=== PATIENT | male | born 1945 | race Asian ===

== ENCOUNTER 2020-04-24 21:24 | Inpatient (IN) | payer MEDICARE, OTHER ==
[~2020-04-24] VITALS: Ht 165.1 cm; Wt 68.0 kg
--- NOTE | 2020-04-24 21:29 | NUR ---
PT AMBULATED TO THE RESTROOM WITH A STEADY GAIT, WILL PROVIDE URINE SAMPLE.
--- NOTE | 2020-04-24 21:36 | NUR ---
PT AAOX4. AMBULATORY WITH STEADY GAIT. SPEAKS MINIMAL MALAYSIAN. BIBRA. PER RA " STATED HE WAS HALLUCINATING AND SEEING THINGS IN THE BEDROOM." PALCED IN BED 12, ON MONITOR AND PULSE OX. AWAITING MD FOR EVAL. PT PROVIDED URINE SAMPLE.
[2020-04-24 21:50] LABS: BASOPHILS % (AUTO) 0.2 % (0.0-2.0); EOSINOPHILS % (AUTO) 1.1 % (0.0-6.0); HEMATOCRIT 46 % (39-51); HEMOGLOBIN 15.5 g/dL (13.5-17.5); LYMPHOCYTES # (AUTO) 1.7 /CMM (0.8-4.8); MEAN CORPUSCULAR HGB CONC 34 g/dl (31.0-36.0); MEAN CORPUSCULAR VOLUME 100 fL (80-96); MONOCYTES # (AUTO) 0.6 /CMM (0.1-1.30); NEUTROPHILS # (AUTO) 5.6 /CMM (1.8-8.9); NEUTROPHILS % (AUTO) 70.7 % (43.0-81.0); PLATELET COUNT (AUTO) 162 /CMM (150-450); RED BLOOD CELL COUNT(AUTO) 4.59 MIL/uL (4.5-6.0)
[2020-04-24 21:56] LABS: APPEARANCE,URINE Clear (CLEAR); BILIRUBIN,URINE Negative (NEGATIVE); BLOOD, URINE Negative Ery/uL (NEGATIVE); COLOR,URINE Yellow (YELLOW); KETONES,URINE Trace (NEGATIVE); LEUKOCYTE ESTERASE ,URINE Negative (NEGATIVE); NITRITE, URINE Negative (NEGATIVE); PH,URINE 5.5 (5.0-8.0); PROTEIN,URINE Negative (NEGATIVE); UGLUCOSE Negative (NEGATIVE); UROBILINOGEN,URINE 0.2 EU/dL (0.2)
[2020-04-24 21:57] LABS: CALCIUM, SERUM 10.2 mg/dL (8.5-10.1); CARBON DIOXIDE 27 mmol/L (21-32); CHLORIDE 104 mmol/L (98-107); CREATININE 1.9 mg/dL (0.6-1.3); GLUCOSE 151 mg/dL (74-106); POTASSIUM 3.8 mmol/L (3.5-5.1); SODIUM SERUM 141 mmol/L (136-145); UREA NITROGEN, BLOOD 26 mg/dL (7-18)
--- NOTE | 2020-04-24 22:07 | NUR ---
spoke to on the phone.
[2020-04-24 22:09] LABS: ALANINE AMINOTRANSFERASE 38 U/L (12-78); ALBUMIN 4.7 g/dL (3.4-5.0); ALCOHOL, BLOOD < 3 mg/dL (0-0); ALKALINE PHOSPHATASE 67 U/L (46-116); ASPARTATE AMINOTRANSFERASE 29 U/L (15-37); BILIRUBIN,DIRECT 0.1 mg/dL (0.0-0.2); BILIRUBIN,TOTAL 0.6 mg/dL (0.2-1.0); TOTAL PROTEIN, SERUM 8.6 g/dL (6.4-8.2)
--- NOTE | 2020-04-24 22:09 | NUR ---
yaw (shaylabasil) [phone] - cell
[2020-04-24 22:10] LABS: ACETAMINOPHEN 0 ug/ml (10-30); SALICYLATE 0.7 mg/dL (2.8-20.0)
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
[2020-04-24 22:13] LABS: BACTERIA,URINE Few /HPF (None Seen); HYALINE CASTS, URINE Few /LPF (None Seen); MUCUS,URINE Few /LPF (None Seen); RBC,URINE 0-2 /HPF (0-2); SQUAMOUS EPITHELIAL CELL,UR Few /HPF (None Seen); WBC,URINE 0-2 /HPF (0-3)
[2020-04-24] MEDS ORDERED: IV NS 0.9% 1,000 ML BAG IV ONE (22:30)
--- NOTE | 2020-04-24 23:30 | NUR ---
ATTEMPTED TO CONTACT SCOOBY TABARES FOR EVALUATION. LEFT MESSAGE, WILL FOLLOW UP
--- NOTE | 2020-04-25 00:15 | NUR ---
ATTEMPTED TO CONTACT SCOOBY TABARES FOR EVALUATION. LEFT MESSAGE, WILL FOLLOW UP
--- NOTE | 2020-04-25 01:19 | NUR ---
ATTEMPTED TO CONTACT SCOOBY TABARES FOR EVALUATION. LEFT MESSAGE, WILL FOLLOW UP
--- NOTE | 2020-04-25 01:25 | NUR ---
ATTEMPTED TO CONTACT SCOOBY MCCALL. LEFT MESSAGE, WILL FOLLOW UP
--- NOTE | 2020-04-25 01:36 | NUR ---
PER SCOOBY MCCALL CALL JHONATHAN AQUINO FOR EVALUATION. ATTEMPTED TO CONTACT JHONATHAN AQUINO NO ANSWER, LEFT MESSAGE. WILL FOLLOW UP
--- NOTE | 2020-04-25 01:44 | NUR ---
SPOKE WITH JHONATHAN AQUINO. WILL COME FOR EVALUATION
--- NOTE | 2020-04-25 03:44 | NUR ---
ATTEMPTED TO CONTACT JHONATHAN AQUINO FOR EVALUATION. NO ANSWER, WILL FOLLOW UP
--- NOTE | 2020-04-25 03:59 | NUR ---
SPOKE WITH SCOOBY TABARES. EN ROUTE TO HOSPITAL FOR EVALUATION
--- NOTE | 2020-04-25 04:55 | NUR ---
RAYSA FROM CRISIS AT BEDSIDE
--- NOTE | 2020-04-25 06:05 | NUR ---
REPORT GIVEN TO JHONATHAN EDEN
--- NOTE | 2020-04-25 06:41 | NUR ---
PT TRANSFFERED TO GPS VIA WHEELCHAIR
[2020-04-25 08:00] VITALS: BP 131/83
--- NOTE | 2020-04-25 08:00 | NUR ---
Spoke to the Twyla and gave the commercial loan underwriter the meds that pt. is taking at home.
--- NOTE | 2020-04-25 08:00 | NUR ---
GPS/RN RECEIVED THE PT FROM DRIER AND GRINDER TENDER. PT BROUGHT TO THE UNIT FROM [facility] ER ORIGINALLY FROM HOME ON 5150 FOR GD AND DTS. TAGALOG AND BASIC [place] SPEAKING. AMBULATORY VSS. ON FACE TO FACE ASSESSMENT NO SI OR HI REPORTED. ADMITTING ORDERS FROM DR BURGOS RECEIVED AND CARRIED OUT. DR ROSS TO RECONCILE MEDS.
[2020-04-25] MEDS ORDERED: TAMS-12 PO (08:04)
[2020-04-25] MEDS ORDERED: LATA2.5D7 EACHEYE (08:04)
[2020-04-25] MEDS ORDERED: LEVO100T9 PO (08:04)
[2020-04-25] MEDS ORDERED: QUET25TA PO (08:04)
[2020-04-25] MEDS ORDERED: AMLO10TA7 PO (08:04)
[2020-04-25] MEDS ORDERED: OMEG1CAP (08:04)
[2020-04-25] MEDS ORDERED: CALC-1274 (08:04)
[2020-04-25] MEDS ORDERED: METO50TA16 PO (08:04)
[2020-04-25] MEDS ORDERED: ATORVASTATIN PO (08:04)
[2020-04-25] MEDS ORDERED: ASPI-1152 PO (08:04)
[2020-04-25] MEDS ORDERED: MAGNESIUM HYDROXIDE 30 ML UDC PO PRN (08:30)
[2020-04-25] MEDS ORDERED: MAG HYDROX/AL HYDROX/SIMETH 30 ML UDC PO PRN (08:30)
[2020-04-25] MEDS ORDERED: ACETAMINOPHEN 325 MG TABLET PO PRN (08:30)
[2020-04-25] MEDS ORDERED: BLOOD SUGAR DIAGNOSTIC 1 EACH STRIP IN ONE (08:30)
--- NOTE | 2020-04-25 08:50 | NUR ---
Dr. Zavala gave an order to D/C hold and D/C home and to follow up with the psych and medical doctors. Addendum: 04/25/20 at 0852 by LESTER YOUNG RN Documentation is not for this patient.
[2020-04-25] MEDS: ASPIRIN EC 81 MG TABLET.DR PO SCH (08:57)
[2020-04-25] MEDS: TAMSULOSIN 0.4 MG CAP.SR.24H PO SCH (08:57)
[2020-04-25] MEDS: LEVOTHYROXINE SODIUM 100 MCG TABLET PO SCH (08:57)
[2020-04-25] MEDS: AMLODIPINE BESYLATE 10 MG TABLET PO SCH (08:58)
[2020-04-25] MEDS: METOPROLOL TARTRATE 50 MG TABLET PO SCH ×2 (08:58→16:27)
[2020-04-25 16:00] VITALS: BP 115/70
[2020-04-25] MEDS ORDERED: LORAZEPAM 1 MG TABLET PO PRN (17:30)
--- NOTE | 2020-04-25 19:10 | NUR ---
GPS/RN ENDORSED TO MEEK RN TO MEDICATE THE PT.
[2020-04-25] MEDS: risperiDONE 1 MG TABLET PO SCH (19:17)
[2020-04-25] MEDS: RIVASTIGMINE TARTRATE 1.5 MG CAPSULE PO SCH (19:17)
[2020-04-25 19:53] VITALS: BP 123/71
[2020-04-25] MEDS: ATORVASTATIN 40 MG TABLET PO SCH (21:23)
[2020-04-25] MEDS: LATANOPROST EYE DROP 0.005% 2.5 ML BOTTLE EACHEYE SCH (21:23)
[2020-04-26] MEDS: risperiDONE 1 MG TABLET PO SCH ×2 (06:07→16:55)
[2020-04-26] MEDS: RIVASTIGMINE TARTRATE 1.5 MG CAPSULE PO SCH ×2 (06:07→16:55)
[2020-04-26 06:29] LABS: BASOPHILS % (AUTO) 0.7 % (0.0-2.0); EOSINOPHILS % (AUTO) 5.6 % (0.0-6.0); HEMATOCRIT 43 % (39-51); HEMOGLOBIN 14.6 g/dL (13.5-17.5); LYMPHOCYTES # (AUTO) 1.3 /CMM (0.8-4.8); LYMPHOCYTES % (AUTO) 25.6 % (20.0-44.0); MEAN CORPUSCULAR HGB CONC 34 g/dl (31.0-36.0); MEAN CORPUSCULAR VOLUME 99 fL (80-96); MONOCYTES # (AUTO) 0.6 /CMM (0.1-1.30); MONOCYTES % (AUTO) 12.7 % (2.0-12.0); NEUTROPHILS # (AUTO) 2.8 /CMM (1.8-8.9); NEUTROPHILS % (AUTO) 55.4 % (43.0-81.0); PLATELET COUNT (AUTO) 138 /CMM (150-450); RED BLOOD CELL COUNT(AUTO) 4.37 MIL/uL (4.5-6.0); WHITE BLOOD COUNT (AUTO) 5.1 K/uL (4.3-11.0)
[2020-04-26 06:54] LABS: ALBUMIN 3.9 g/dL (3.4-5.0); BILIRUBIN,TOTAL 1.3 mg/dL (0.2-1.0); CALCIUM, SERUM 8.8 mg/dL (8.5-10.1); CREATININE 1.2 mg/dL (0.6-1.3); MAGNESIUM 2.4 mg/dL (1.8-2.4); PHOSPHORUS 3.1 mg/dL (2.5-4.9); POTASSIUM 3.5 mmol/L (3.5-5.1); TOTAL PROTEIN, SERUM 7.4 g/dL (6.4-8.2)
[2020-04-26 08:00] VITALS: BP 108/70
[2020-04-26] MEDS: TAMSULOSIN 0.4 MG CAP.SR.24H PO SCH (08:49)
[2020-04-26] MEDS: CALCIUM CARB 250MG /VITAMIN D 1 UDTAB PO SCH (08:50)
[2020-04-26] MEDS: LEVOTHYROXINE SODIUM 100 MCG TABLET PO SCH (08:50)
[2020-04-26] MEDS: ASPIRIN EC 81 MG TABLET.DR PO SCH (08:50)
[2020-04-26] MEDS: AMLODIPINE BESYLATE 10 MG TABLET PO SCH (08:50)
[2020-04-26] MEDS: METOPROLOL TARTRATE 50 MG TABLET PO SCH ×2 (08:51→16:55)
[2020-04-26 16:00] VITALS: BP 128/76
[2020-04-26 20:07] VITALS: BP 114/69
[2020-04-26] MEDS: LATANOPROST EYE DROP 0.005% 2.5 ML BOTTLE EACHEYE SCH (21:04)
[2020-04-26] MEDS: ATORVASTATIN 40 MG TABLET PO SCH (21:04)
[2020-04-27] MEDS: risperiDONE 1 MG TABLET PO SCH ×2 (05:13→17:17)
[2020-04-27] MEDS: RIVASTIGMINE TARTRATE 1.5 MG CAPSULE PO SCH ×2 (05:14→17:17)
--- NOTE | 2020-04-27 06:25 | NUR ---
GPS RN CLOSING NOTE, PATIENT IN BED ASLEEP AT THIS TIME, NO SOB/ACUTE DISTRESS NOTED, PT REMAINED STABLE THROUGHOUT SHIFT, COOPERATIVE AND COMPLIANT WITH CARE AND MEDICATIONS, TAGALOG SPEAKING, ALL NEEDS PROVIDED, SAFETY PRECAUTIONS IN PLACE, BED LOCKED POSITION AND LOWEST POSITION, BED ALARM ON, HOB ELEVATED TO SEMI FOWLERS POSITION, CALL LIGHT WITHIN REACH, WILL ENDORSE CONTINUITY OF CARE TO ONCOMING NURSE.
[2020-04-27 08:00] VITALS: BP 103/61
[2020-04-27] MEDS: CALCIUM CARB 250MG /VITAMIN D 1 UDTAB PO SCH (08:19)
[2020-04-27] MEDS: LEVOTHYROXINE SODIUM 100 MCG TABLET PO SCH (08:19)
[2020-04-27] MEDS: TAMSULOSIN 0.4 MG CAP.SR.24H PO SCH (08:19)
[2020-04-27] MEDS: ASPIRIN EC 81 MG TABLET.DR PO SCH (08:19)
[2020-04-27] MEDS: AMLODIPINE BESYLATE 10 MG TABLET PO SCH (08:20)
[2020-04-27] MEDS: METOPROLOL TARTRATE 50 MG TABLET PO SCH ×2 (08:20→17:18)
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
--- NOTE | 2020-04-27 11:26 | NUR ---
INITIAL DISCHARGE PLAN: Per Twyla [phone] she wishes for pt to return home [address] [id number]. SW will help form a safe and proper discharge in collaboration with .
--- NOTE | 2020-04-27 15:49 | NUR ---
GROUP THERAPY: SW encouraged the pt to participate in group therapy but the pt is confused and disorganized. Pt is unable to participate in group therapy at this time. Pt did not engage with SW when SW attempted to provide individual intervention.
[2020-04-27 16:00] VITALS: BP 129/69
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
[2020-04-27 20:02] VITALS: BP 106/68
[2020-04-27] MEDS: LATANOPROST EYE DROP 0.005% 2.5 ML BOTTLE EACHEYE SCH (21:19)
[2020-04-27] MEDS: TEMAZEPAM 15 MG CAPSULE PO PRN (21:24)
--- NOTE | 2020-04-27 21:26 | NUR ---
GPS-RN NOTE: INSOMNIA PATIENT C/O INABILITY TO SLEEP. ADMINISTERED RESTORIL 15MG PO ORDERED. WILL CONTINUE TO MONITOR.
[2020-04-28 05:55] VITALS: BP 102/60
[2020-04-28] MEDS: RIVASTIGMINE TARTRATE 1.5 MG CAPSULE PO SCH ×2 (05:59→18:16)
[2020-04-28] MEDS: risperiDONE 1 MG TABLET PO SCH ×2 (05:59→18:17)
[2020-04-28 08:00] VITALS: BP_SYST 102; BP_SYST 112; BP_DIAS 64; BP_DIAS 76
[2020-04-28] MEDS: CALCIUM CARB 250MG /VITAMIN D 1 UDTAB PO SCH (08:58)
[2020-04-28] MEDS: ASPIRIN EC 81 MG TABLET.DR PO SCH (08:58)
[2020-04-28] MEDS: TAMSULOSIN 0.4 MG CAP.SR.24H PO SCH (08:58)
[2020-04-28] MEDS: LEVOTHYROXINE SODIUM 100 MCG TABLET PO SCH (08:59)
[2020-04-28] MEDS: METOPROLOL TARTRATE 50 MG TABLET PO SCH ×2 (08:59→17:00)
[2020-04-28] MEDS: AMLODIPINE BESYLATE 10 MG TABLET PO SCH (09:00)
[2020-04-28 10:19] LABS: *SPE A/G RATIO 1.2 (0.7-1.7); *SPE ALBUMIN 3.5 g/dL (2.9-4.4); *SPE ALPHA-1-GLOBULIN 0.2 g/dL (0.0-0.4); *SPE ALPHA-2-GLOBULIN 0.6 g/dL (0.4-1.0); *SPE BETA GLOBULIN 1.1 g/dL (0.7-1.3); *SPE M-SPIKE Not Observed g/dL (Not Observed); *SPEGAMMA GLOBULIN 1.1 g/dL (0.4-1.8)
[2020-04-28 13:08] LABS: PTH, INTACT 34 pg/mL (15-65)
[2020-04-28 16:00] VITALS: BP 102/64
--- NOTE | 2020-04-28 17:30 | NUR ---
quiet,isolative,med compliant,no complaints.
[2020-04-28 20:00] VITALS: BP 116/78
[2020-04-28] MEDS: LATANOPROST EYE DROP 0.005% 2.5 ML BOTTLE EACHEYE SCH (21:25)
[2020-04-28] MEDS: TEMAZEPAM 15 MG CAPSULE PO PRN (21:26)
--- NOTE | 2020-04-28 21:31 | NUR ---
GPS RN NOTES: INSOMNIA PT C/O UNABLE TO SLEEP. OFFERED RESTORIL 15MG PO PRN ORDERED. PT AGREED AND TOLERATED WELL. CONTINUE TO MONITOR.
[2020-04-29 00:36] VITALS: BP 131/68
[2020-04-29] MEDS: RIVASTIGMINE TARTRATE 1.5 MG CAPSULE PO SCH ×2 (05:28→17:23)
[2020-04-29] MEDS: risperiDONE 1 MG TABLET PO SCH ×2 (05:28→17:23)
[2020-04-29 08:00] VITALS: BP 144/68
[2020-04-29] MEDS: LEVOTHYROXINE SODIUM 100 MCG TABLET PO SCH (09:18)
[2020-04-29] MEDS: CALCIUM CARB 250MG /VITAMIN D 1 UDTAB PO SCH (09:18)
[2020-04-29] MEDS: AMLODIPINE BESYLATE 10 MG TABLET PO SCH (09:18)
[2020-04-29] MEDS: TAMSULOSIN 0.4 MG CAP.SR.24H PO SCH (09:18)
[2020-04-29] MEDS: ASPIRIN EC 81 MG TABLET.DR PO SCH (09:19)
[2020-04-29] MEDS: METOPROLOL TARTRATE 50 MG TABLET PO SCH ×2 (09:19→17:23)
--- NOTE | 2020-04-29 14:47 | NUR ---
GROUP NOTE: SW encouraged the pt to participate in group therapy but the pt is confused and disorganized. Pt was sitting at bedside eating crackers, SW called his name and pt did not respond.
--- NOTE | 2020-04-29 15:39 | NUR ---
BACK AND FORTH BETWEEN PT. ROOM AND DINING RM.
[2020-04-29 16:00] VITALS: BP 122/75
[2020-04-29 19:37] VITALS: BP 117/66
[2020-04-29 20:00] VITALS: BP 117/66
--- NOTE | 2020-04-29 21:12 | NUR ---
GPS RN NOTE: PRN TYLENOL GIVEN PATIENT VERBALIZED SLIGHT THROAT PAIN & IRRITATION, HAVE NOT SEEN PATIENT COUGHING OR ANY OTHER FLU LIKE SYMPTOMS SINCE THE BEGINNING OF SSAS DEVELOPER, NEITHER GOT REPORT FROM AM RN ABOUT ANY SYMPTOMS. PATIENT REQUESTED TO GET PAIN MEDICINE, TRANSLATED WITH ANOTHER RN UNDERSTANDING TAGALOG. PRN TYLENOL 650 MG PO GIVEN. WILL CONTINUE TO MONITOR FOR ANY CHANGES.
[2020-04-29] MEDS: LATANOPROST EYE DROP 0.005% 2.5 ML BOTTLE EACHEYE SCH (21:28)
[2020-04-29] MEDS: TEMAZEPAM 15 MG CAPSULE PO PRN (23:27)
--- NOTE | 2020-04-29 23:27 | NUR ---
PRN RESTORIL GIVEN PATIENT IS AWAKE & VERBALIZED THAT HE IS UNABLE TO SLEEP & REQUESTED TO GET HIS SLEEPING MEDICINE. PRN RESTORIL 15 MG 1 CAP PO GIVEN. WILL REASSESS FOR EFFECTIVENESS.
[2020-04-30] MEDS: risperiDONE 1 MG TABLET PO SCH ×2 (06:00→17:03)
[2020-04-30] MEDS: RIVASTIGMINE TARTRATE 1.5 MG CAPSULE PO SCH ×2 (06:00→17:04)
[2020-04-30 07:59] LABS: ALBUMIN 4.5 g/dL (3.4-5.0); CALCIUM, SERUM 9.7 mg/dL (8.5-10.1); CREATININE 1.1 mg/dL (0.6-1.3); MAGNESIUM 2.4 mg/dL (1.8-2.4); PHOSPHORUS 3.6 mg/dL (2.5-4.9); POTASSIUM 3.8 mmol/L (3.5-5.1); TOTAL PROTEIN, SERUM 8.7 g/dL (6.4-8.2)
[2020-04-30 08:00] VITALS: BP 106/70
[2020-04-30 08:17] LABS: BASOPHILS # (AUTO) 0.1 /CMM (0.0-0.2); BASOPHILS % (AUTO) 0.9 % (0.0-2.0); EOSINOPHILS % (AUTO) 4.9 % (0.0-6.0); HEMATOCRIT 50 % (39-51); HEMOGLOBIN 16.1 g/dL (13.5-17.5); LYMPHOCYTES % (AUTO) 48.5 % (20.0-44.0); MEAN CORPUSCULAR HGB CONC 33 g/dl (31.0-36.0); MEAN CORPUSCULAR VOLUME 103 fL (80-96); MONOCYTES # (AUTO) 0.5 /CMM (0.1-1.30); MONOCYTES % (AUTO) 8.2 % (2.0-12.0); NEUTROPHILS # (AUTO) 2.3 /CMM (1.8-8.9); NEUTROPHILS % (AUTO) 37.5 % (43.0-81.0); PLATELET COUNT (AUTO) 157 /CMM (150-450); RED BLOOD CELL COUNT(AUTO) 4.82 MIL/uL (4.5-6.0); WHITE BLOOD COUNT (AUTO) 6.1 K/uL (4.3-11.0)
[2020-04-30] MEDS: ASPIRIN EC 81 MG TABLET.DR PO SCH (08:27)
[2020-04-30] MEDS: CALCIUM CARB 250MG /VITAMIN D 1 UDTAB PO SCH (08:28)
[2020-04-30] MEDS: LEVOTHYROXINE SODIUM 100 MCG TABLET PO SCH (08:28)
[2020-04-30] MEDS: TAMSULOSIN 0.4 MG CAP.SR.24H PO SCH (08:28)
[2020-04-30] MEDS: AMLODIPINE BESYLATE 10 MG TABLET PO SCH (08:28)
[2020-04-30] MEDS: METOPROLOL TARTRATE 50 MG TABLET PO SCH ×2 (08:28→17:04)
--- NOTE | 2020-04-30 15:04 | NUR ---
GROUP NOTE: Pt unable to participate in group therapy as pt was attending his Probable Cause Hearing during this time.
[2020-04-30 16:00] VITALS: BP 122/82
--- NOTE | 2020-04-30 16:17 | NUR ---
FAMILY CONTACT: CARMEN contacted pts Twyla [phone] to inform her pt will be discharged tomorrow Monday05/01/20. She states she will pick pt up at 1:00pm.
--- NOTE | 2020-04-30 19:44 | NUR ---
GPS/RN OPENING NOTES RECEIVED PATIENT IN BED, ABLE TO VERBALIZE NEEDS, ALERT X3, CAN AMBULATE SAFELY WITH WALKER, RESPIRATIONS EVEN AND UNLABORED SKIN WARM TO TOUCH, COOPERATIVE TO CARE, DENIES ANY PAIN AND MONITORING FOR ANY CHANGES IN BEHAVIOR, PATIENT REPORTED IMPROVED WELLBEING AND THAT HE IS GOING HOME TOMORROW WITH HIS FAMILY. RECEIVED ENDORESMENT FROM AM RN FOR LISA.
[2020-04-30 20:00] VITALS: BP 121/92
--- NOTE | 2020-04-30 20:38 | NUR ---
gps.rn notes patient observed able to do self care with assist, has a denture lower and upper and kept in denture cup with his name on.
[2020-04-30] MEDS: LATANOPROST EYE DROP 0.005% 2.5 ML BOTTLE EACHEYE SCH (21:08)
[2020-05-01] MEDS: risperiDONE 1 MG TABLET PO SCH (05:26)
[2020-05-01] MEDS: RIVASTIGMINE TARTRATE 1.5 MG CAPSULE PO SCH (05:26)
[2020-05-01 08:00] VITALS: BP 112/64
--- NOTE | 2020-05-01 08:30 | NUR ---
gps manager of business operations: notes dr. rendon (trust administrative assistant) here and aware of discharge this afternoon with written prescriptions provided by .
[2020-05-01] MEDS: METOPROLOL TARTRATE 50 MG TABLET PO SCH (08:39)
[2020-05-01 08:40] VITALS: BP 112/64
[2020-05-01] MEDS: CALCIUM CARB 250MG /VITAMIN D 1 UDTAB PO SCH (08:40)
[2020-05-01] MEDS: TAMSULOSIN 0.4 MG CAP.SR.24H PO SCH (08:40)
[2020-05-01] MEDS: AMLODIPINE BESYLATE 10 MG TABLET PO SCH (08:40)
[2020-05-01] MEDS: LEVOTHYROXINE SODIUM 100 MCG TABLET PO SCH (08:40)
[2020-05-01] MEDS: ASPIRIN EC 81 MG TABLET.DR PO SCH (08:40)
--- NOTE | 2020-05-01 09:45 | NUR ---
m/s policyholder information clerk: notes received order from cn to discharge pt to home today. pt aware. pt stable for discharge. denied si/hi and denies auditory/hallucinations at this time. to picket labor union pt after lunch. pt aware.
--- NOTE | 2020-05-01 12:47 | NUR ---
DISCHARGE NOTE: Pt will be discharged at 1:00pm via private vehicle home [address] [facility] [address] [place] [address]. Pts Twyla [phone] will be picking pt up. Pts mood is euthymic with congruent affect. Pt denied visual/auditory hallucinations and denied suicidal/homicidal ideation. Pt will be under the care of Psychiatrist: Dr. Cason [facility] [id number] [place] [address] [facility] [address] . and Manufacturing Process Technician: [facility] Address: [address] [place] [address] . The multidisciplinary exit care form was done, printed, signed, and given to the patient. Addendum: 05/01/20 at 1253 by JULIETTE MORALES Pt will follow up with Psychiatrist: Dr. Cason [facility] [address] [facility] [address] on May 11, 2020 and CARMEN faxed clinicals to .
--- NOTE | 2020-05-01 12:50 | NUR ---
gps spine surgeon: notes discharge instructions with prescriptions given to pt, stating can you also talk to my about it. pt stable for discharge. denies si/hi. hold has been discontinued. denies auditory/visual hallucinations. awaiting for to pick him up.
--- NOTE | 2020-05-01 13:10 | NUR ---
gps delicatessen clerk: discharged pt stable for discharged. denied si/hi and denied auditory/visual hallucination. all needs attended. discharged pt in stable condition accompanied by and neighbor with all d'c papers and valuables. verbal discharge given to with prescriptions and verbalized understanding.
== END 2020-05-01 13:10 | disposition home or self-care (01) | DRG 885 ==
LOC: ER 21:28 → GPS 04-25 05:59
PROVIDERS: ADMIT Psychiatry & Neurology Psychiatry; ATTEND Family Medicine
DX: F29 Unspecified psychosis not due to a substance or known physiological condition (principal); N18.9 Chronic kidney disease, unspecified; N17.0 Acute kidney failure with tubular necrosis; E78.5 Hyperlipidemia, unspecified; F20.9 Schizophrenia, unspecified; E03.9 Hypothyroidism, unspecified; F41.9 Anxiety disorder, unspecified; I12.9 Hypertensive chronic kidney disease with stage 1 through stage 4 chronic kidney disease, or unspecified chronic kidney disease; H40.9 Unspecified glaucoma; F32.9 Major depressive disorder, single episode, unspecified; N40.0 Benign prostatic hyperplasia without lower urinary tract symptoms; Z91.81 History of falling; Z73.6 Limitation of activities due to disability
CPT/HCPCS: 36415; 80048-TC; 80053-TC; 80061-TC; 80076-TC; 80305; 81000-TC; 82550-TC; 82553; 82962-TC; 83735-TC; 83970; 84100-TC; 84155; 84165; 85025-TC; 87081-TC; G0480; J7030